=== PATIENT | male | born 1980 | race African-American/Black ===

== ENCOUNTER 2019-07-11 11:56 | Inpatient (IN) | payer MEDICAID, OTHER ==
--- NOTE | 2019-07-11 13:08 | ED ---
Psychiatric Complaint - HPI Summary HPI Summary: Patient presents with active hallucinations and suicidal ideations with plan. Told triage he planned on hanging himself last night. Reports he was living with his girlfriend but they recently broke up which has left him undomiciled. When asked if he stayed at the correction last night he reported "I can't stay in the place". When asked what he is hearing, he reports that he is and they are telling him to cut himself however he states idling to cut, I prefer burning. No active plans to burn himself however he states "if it happens". States he has not anything to eat or drink since Saturday and has not slept since Saturday. Reports daily alcohol use but denies history of withdrawal or seizures. When specifically asked if he felt he may withdraw he said no I don' t drink like that. Self-reported history of depression with schizophrenia. Reports he is not on any medication at this time and doesn't like to use medication because he doesn't feel like himself. When asked if he wanted any medication to help with the voices he's hearing, he declined. He is interested in having a meal. - History Of Current Complaint Chief Complaint: EDSuicidal Time Seen by Provider: 07/11/19 11:58 Hx Obtained From: Patient - Allergies/Home Medications Allergies/Adverse Reactions: Allergies Allergy/AdvReac Type Severity Reaction Status Date / Time Sulfa (Sulfonamide Allergy Hives/Diff. Verified 07/11/19 12:20 Antibiotics) Breathing/I tching Home Medications: Home Medications NK [No Home Medications Reported] 07/11/19 [History Confirmed 07/11/19] PMH/Surg Hx/FS Hx/Imm Hx Infectious Disease History: No Infectious Disease History: Denies: Traveled Outside the [place] in Last 30 Days - Social History Alcohol Use: Occasionally Substance Use Type: Reports: Cocaine Smoking Status (MU): Light Every Day Tobacco Smoker Review of Systems Constitutional: Negative Eyes: Negative ENT: Negative Cardiovascular: Negative Respiratory: Negative Gastrointestinal: Negative Genitourinary: Negative Musculoskeletal: Negative Skin: Negative Neurological: Negative Psychological: Other - as in history of present illness All Other Systems Reviewed And Are Negative: Yes Physical Exam Triage Information Reviewed: Yes Vital Signs On Initial Exam: Initial Vitals Temp Pulse Resp BP Pulse Ox 98.2 F 83 19 131/62 99 07/11/19 12:08 07/11/19 12:08 07/11/19 12:08 07/11/19 12:08 07/11/19 12:08 Vital Signs Reviewed: Yes Appearance: Positive: No Pain Distress - Appears fatigued, sclera injected and dry lips; poor eye contact and speaks softly although does increase volume of his voice when asked to repeat his comments; calm and cooperative - mumbles "I don't want to wake up in 6 point restraints so I'll cooperate" Skin: Positive: Warm, Skin Color Reflects Adequate Perfusion, Dry - scars on arms - no active lesions identified Head/Face: Positive: Normal Head/Face Inspection Eyes: Positive: Normal, EOMI, SMITA ENT: Positive: Hearing grossly normal Neck: Positive: Other: - no gross thyromegaly Respiratory/Lung Sounds: Positive: Clear to Auscultation, Breath Sounds Present. Negative: Rales, Rhonchi, Wheezes Cardiovascular: Positive: Normal, RRR, S1, S2. Negative: Murmur, Rub, Leg Edema Left, Leg Edema Right Abdomen Description: Positive: Nontender, No Organomegaly, Soft Bowel Sounds: Positive: Present Musculoskeletal: Positive: Normal, Strength/ROM Intact Neurological: Positive: Normal, Sensory/Motor Intact, CN Intact II-III Psychiatric: Positive: Other - as above - Maxine Coma Scale Best Eye Response: 4 - Spontaneous Best Motor Response: 6 - Obeys Commands Best Verbal Response: 5 - Oriented Coma Scale Total: 15 Diagnostics - Vital Signs Vital Signs Temp Pulse Resp BP Pulse Ox 07/11/19 12:08 98.2 F 83 19 131/62 99 - Laboratory Result Diagrams: 07/11/19 13:37 07/11/19 13:37 Lab Statement: Any lab studies that have been ordered have been reviewed, and results considered in the medical decision making process. Course/Dx - Course Course Of Treatment: Pt admits to schizophrenia and depression w/o medication or counseling at present. Does not want medication for auditory hallucinations at this time but he is aware we can discuss them if he would like to try something. He agrees to labs and a meal. Pending medical w/u and mental health eval. Labs positive for cocaine and cannabinoids - sx could be drug induced however pt admits to schizophrenia and depression and no medication at this time. If he has better mental clarity once drugs wear off and no longer has SI w / plans or auditory hallucinations, may be eligible for d/c but will need to be linked w/ MH and assistance w/ residency. Per pt, other than girlfriend who he has recently parted with, no friends or family in town and no one he wants to contact while here. - Differential Dx/Clinical Impression Provider Diagnosis: Suicidal thoughts, Auditory hallucinations Discharge ED - Sign-Out/Discharge Documenting (check all that apply): Patient Departure - Discharge Plan Condition: Stable Disposition: ADMITTED TO [facility] - Billing Disposition and Condition Condition: STABLE Disposition: Admitted to [facility]
[2019-07-11 13:47] LABS: ABS Basophils 0.1 10^3/ul (0-0.2); ABS Eosinophils 0.2 10^3/ul (0-0.6); ABS Lymphocytes 3.4 10^3/ul (1.0-4.8); ABS Neutrophils 8.4 10^3/ul (1.5-7.7); Eosinophil % 1.4 %; Hematocrit 40 % (42-52); Hemoglobin 13.7 g/dL (14.0-18.0); Lymphocyte % 25.8 %; Mean Corpuscular HGB Conc 34 g/dL (31-36); Mean Corpuscular Hemoglobin 30 pg (27-31); Mean Corpuscular Volume 89 fL (80-94); Mean Platelet Volume 7.3 fL (7.4-10.4); Nucleated Red Blood Cells % 0.1; Platelet Count 255 10^3/uL (150-450); Red Blood Count 4.52 10^6 /uL (4.18-5.48); Red Cell Distribution Width 14 % (10-15)
[2019-07-11 14:04] LABS: ALT 23 U/L (7-52); AST 31 U/L (13-39); Albumin 4.6 g/dL (3.2-5.2); Albumin/Globulin Ratio 1.7 (1-3); Alkaline Phosphatase 63 U/L (34-104); Anion Gap 6 mmol/L (2-11); BUN/Creatinine Ratio 13.1 (8-20); Blood Urea Nitrogen 18 mg/dL (6-24); CO2 Carbon Dioxide 29 mmol/L (22-32); Calcium 9.9 mg/dL (8.6-10.3); Chloride 103 mmol/L (101-111); EGFR African American 70.4 (>60); EGFR Non-African American 58.2 (>60); Globulin 2.7 g/dL (2-4); Glucose 86 mg/dL (70-100); Potassium 4.1 mmol/L (3.5-5.0); Sodium 138 mmol/L (135-145); Total Protein 7.3 g/dL (6.4-8.9)
[2019-07-11 14:25] LABS: Acetaminophen < 15 mcg/mL; Alcohol < 10 mg/dL (<10); Salicylate < 2.50 mg/dL (<30)
[2019-07-11 14:29] LABS: Urine Appearance Clear; Urine Bacteria Absent (Absent); Urine Bilirubin Negative (Negative); Urine Blood 1+ (Negative); Urine Color Yellow; Urine Glucose Negative (Negative); Urine Ketones Negative (Negative); Urine Nitrite Negative (Negative); Urine Protein 1+(30 mg/dL) (Negative); Urine Red Blood Cell 1+(3-5/hpf) (Absent); Urine Specific Gravity 1.009 (1.010-1.030); Urine Squamous Epithelial Cell Present (Absent); Urine Urobilinogen Negative (Negative); Urine White Blood Cell Trace(0-5/hpf) (Absent)
[2019-07-11 14:39] LABS: TSH (Thyroid Stimulating Horm) 0.89 mcIU/mL (0.34-5.60)
[2019-07-11 14:46] LABS: Urine Benzodiazepine Screen None Detected (None Detect); Urine Opiates Screen None Detected (None Detect)
[2019-07-11] MEDS ORDERED: Acetaminophen TAB* 325 MG PO PRN (15:23)
[2019-07-11] MEDS ORDERED: Al Hydrox/Mg Hydrox/Simet LIQ* 30 ML UDC PO PRN (15:23)
[2019-07-11] MEDS ORDERED: chlorproMAZINE TAB* 100 MG PO PRN (15:26)
[2019-07-11 18:23] VITALS: BP 114/92
[2019-07-11] MEDS: QUEtiapine TAB* 100 MG PO SCH (22:34)
[2019-07-11] MEDS: Nicotine Patch Removal NOTE FOLLOW UP SCH (23:50)
[2019-07-12] MEDS: Nicotine* 2MG (FRUIT FLAVOR) GUM PO PRN ×3 (08:28→17:57)
[2019-07-12] MEDS: Nicotine PATCH 21 MG/24 HR* PATCH TRANSDERM SCH (08:29)
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
[2019-07-12] MEDS: Naproxen TAB* 375 MG PO SCH ×2 (14:42→22:06)
[2019-07-12] MEDS: QUEtiapine TAB* 100 MG PO SCH (22:06)
[2019-07-13 08:43] LABS: HDL Cholesterol 64.2 mg/dL
[2019-07-13] MEDS: Nicotine* 2MG (FRUIT FLAVOR) GUM PO PRN ×2 (09:08→17:42)
[2019-07-13] MEDS: Naproxen TAB* 375 MG PO SCH ×3 (09:39→21:26)
[2019-07-13] MEDS: Nicotine PATCH 21 MG/24 HR* PATCH TRANSDERM SCH (09:39)
[2019-07-13] MEDS: Benzocaine/Menthol LOZ* 1 LOZENGE PO PRN ×2 (12:53→20:46)
--- NOTE | 2019-07-13 15:41 | PN ---
Subjective - Subjective Date of Service: 07/13/19 Service Type: 92824 Hosp care 15 min low complexity Subjective: Dino talks to me with a blanket over his mouth. He is very deferential and appears to not want to be a problem. We discuss his schizoaffective disorder diagnosis, which he says is most pronounced when he is stressed and/or hasn't slept. We discuss whether he would like an antipsychotic dose that is higher and he declines. He states he is interested in [facility] programming rehab. He filled out the contract and indicated which [facility] programs he would most like to go to. Objective - General Observations Appearance: Disheveled Appears Stated Age: Yes Stature: WNL Posture: WNL Eye Contact: Average Behavior/Activity: WNL, Peculiar - Interaction Observations Attitude Towards Examiner: Cooperative, Anxious Stated Mood: Dysphoric Affect: Restricted Speech Pattern/Tone: Clear Thought Process: Coherent Perception: WNL Thought Content: WNL Hallucination Type: None Delusion Type: None - Cognitive Function Orientation: A&O x 4 Level of Consciousness: Awake, Alert, Appropriate Cognition: WNL Estimated Intelligence: Normal Insight: WNL Judgment Within Normal Limits: No Ability to Make Reasonable Decisions: Mildly Impaired - Medication Compliance Cooperative with Inpatient Medication Regimen: Yes - Group Participation Participates in Group Activities: Partial Assessment - Assessment Merits Inpatient Hospitalization: For Immediate Safety Inpatient DSM-V Dx: F14.94 Clinical Impression: Dino is a 38-year-old black male who comes to the hospital following a disagreement with his former girlfriend who said he could no longer live with her. He has gone to the homeless care home and then relapsed on cocaine, cannabis , and alcohol. He presented to the hospital with auditory hallucinations, depressed mood, and suicidal ideation. He has a historical diagnosis of schizoaffective disorder. Plan - Plan Treatment Plan: Name: DINO RUTLEDGE Birthdate: 1980 [id number] Continue medications begun over the weekend with Dr. Loco. Order losenges for cough. Begin referrals to inpatient rehabs. Medications: Current Medications Acetaminophen (Tylenol Tab*) 650 mg PO Q4H PRN PRN Reason: for pain; or Temp >101 F Al Hydrox/Mg Hydrox/Simethicone (Maalox Plus*) 30 ml PO Q4H PRN PRN Reason: INDIGESTION Chlorpromazine HCl (Thorazine Tab*) 100 mg PO Q6H PRN PRN Reason: AGITATION Naproxen (Naprosyn Tab*) 375 mg PO BID [facility] Last Admin: 07/13/19 09:39 Dose: Not Given Nicotine (Nicotine Patch 21 Mg/24 Hr*) 1 patch TRANSDERM DAILY@0800 [facility] Last Admin: 07/13/19 09:39 Dose: Not Given Nicotine Polacrilex (Nicotine Gum*) 2 mg PO Q2H PRN PRN Reason: CRAVING Last Admin: 07/13/19 09:08 Dose: 2 mg Pharmacy Profile Note (Nicotine Patch Removal Note*) 1 note FOLLOW UP 2100 [facility] Last Admin: 07/11/19 23:50 Dose: Not Given Quetiapine Fumarate (Seroquel Tab*) 100 mg PO BEDTIME [facility] Last Admin: 07/12/19 22:06 Dose: Not Given Throat Lozenges (Chloraseptic Ligia*) 1 ligia PO Q6H PRN PRN Reason: SORE THROAT Last Admin: 07/13/19 12:53 Dose: 1 ligia - Discharge Plan Discharge Plan: Drug/Alcohol Rehab
[2019-07-13] MEDS: Nicotine Patch Removal NOTE FOLLOW UP SCH (20:37)
[2019-07-13] MEDS: QUEtiapine TAB* 100 MG PO SCH ×2 (21:11→21:26)
[2019-07-14] MEDS: Naproxen TAB* 375 MG PO SCH ×2 (09:50→20:39)
[2019-07-14] MEDS: Nicotine PATCH 21 MG/24 HR* PATCH TRANSDERM SCH (09:50)
[2019-07-14] MEDS: Nicotine* 2MG (FRUIT FLAVOR) GUM PO PRN ×4 (09:50→20:41)
[2019-07-14] MEDS: Benzocaine/Menthol LOZ* 1 LOZENGE PO PRN ×2 (11:24→16:32)
--- NOTE | 2019-07-14 15:36 | PN ---
Subjective - Subjective Date of Service: 07/14/19 Service Type: [id number] Hosp care 15 min low complexity Subjective: Dino is much more depressed than he was yesterday. It was possible to elicit a smile yesterday, while today he doesn't make eye contact, speaks softly and in as few words as possible. He endorses suicidal thoughts, though not with a plan here on the unit. He states his overwhelming emotion is depression with a small amount of anxiety. I ask if he is also hallucinating and he nods, but he will not offer specifics. We discuss that we can increase the Seroquel to 300 mg and he is agreeable with a shrug. Objective - General Observations Appearance: Neat Appears Stated Age: Yes Stature: WNL Posture: WNL Eye Contact: Avoidant Behavior/Activity: Slowed, Peculiar - Interaction Observations Attitude Towards Examiner: Anxious, Evasive Stated Mood: Dysphoric, Anxious Affect: Blunted Speech Pattern/Tone: Slurred, Quiet Volume Thought Process: Coherent Perception: WNL Thought Content: Depressive Thought Process: Lethality: Passive Wish, Suicidal Planning Hallucination Type: Visual Delusion Type: Denies - Cognitive Function Orientation: A&O x 4 Level of Consciousness: Awake, Alert, Appropriate Cognition: Impaired Attention/Concentration Estimated Intelligence: Normal Insight: WNL Judgment Within Normal Limits: No Ability to Make Reasonable Decisions: Mildly Impaired - Medication Compliance Cooperative with Inpatient Medication Regimen: Yes - Group Participation Participates in Group Activities: Partial Assessment - Assessment Merits Inpatient Hospitalization: For Immediate Safety Inpatient DSM-V Dx: F14.94 Clinical Impression: Dino is a 38-year-old black male who comes to the hospital following a disagreement with his former girlfriend who said he could no longer live with her. [facility] and then relapsed on cocaine, cannabis , and alcohol. He presented to the hospital with auditory hallucinations, depressed mood, and suicidal ideation. He has a historical diagnosis of schizoaffective disorder. BSU: Problem List - Patient Problems (1) Schizoaffective disorder, bipolar type Current Visit: Yes Status: Acute Code(s): F25.0 - SCHIZOAFFECTIVE DISORDER, BIPOLAR TYPE SNOMED Code(s): 70464598 Plan - Plan Treatment Plan: Name: DINO RUTLEDGE Birthdate: 1980 [id number] 07/13/19 Continue medications begun over the weekend with Dr. Loco. Order losenges for cough. Begin referrals to inpatient rehabs. 07/14/19 Increase Seroquel to 300 mg. Watch for safety and alert staff to risk of suicidal ideation. Add hydroxyzine for anxiety PRN. Medications: Current Medications Acetaminophen (Tylenol Tab*) 650 mg PO Q4H PRN PRN Reason: for pain; or Temp >101 F Al Hydrox/Mg Hydrox/Simethicone (Maalox Plus*) 30 ml PO Q4H PRN PRN Reason: INDIGESTION Chlorpromazine HCl (Thorazine Tab*) 100 mg PO Q6H PRN PRN Reason: AGITATION Hydroxyzine HCl (Atarax Tab*) 50 mg PO Q4H PRN PRN Reason: anxiety Naproxen (Naprosyn Tab*) 375 mg PO BID [facility] Last Admin: 07/14/19 09:50 Dose: Not Given Nicotine (Nicotine Patch 21 Mg/24 Hr*) 1 patch TRANSDERM DAILY@0800 [facility] Last Admin: 07/14/19 09:50 Dose: Not Given Nicotine Polacrilex (Nicotine Gum*) 2 mg PO Q2H PRN PRN Reason: CRAVING Last Admin: 07/14/19 12:34 Dose: 2 mg Pharmacy Profile Note (Nicotine Patch Removal Note*) 1 note FOLLOW UP 2100 [facility] Last Admin: 07/13/19 20:37 Dose: Not Given Quetiapine Fumarate (Seroquel Tab*) 300 mg PO BEDTIME [facility] Throat Lozenges (Chloraseptic German*) 1 german PO Q6H PRN PRN Reason: SORE THROAT Last Admin: 07/14/19 11:24 Dose: 1 german - Discharge Plan Discharge Plan: Drug/Alcohol Rehab
[2019-07-14] MEDS ORDERED: QUEtiapine TAB* 300 MG PO SCH (21:00)
[2019-07-15] MEDS: Nicotine Patch Removal NOTE FOLLOW UP SCH ×2 (00:22→21:27)
[2019-07-15] MEDS: Nicotine PATCH 21 MG/24 HR* PATCH TRANSDERM SCH (11:25)
[2019-07-15] MEDS: Naproxen TAB* 375 MG PO SCH ×2 (11:25→19:55)
[2019-07-15] MEDS: hydrOXYzine HCL TAB* 50 MG PO PRN (11:59)
[2019-07-15] MEDS: Nicotine* 2MG (FRUIT FLAVOR) GUM PO PRN ×3 (12:01→19:55)
[2019-07-15] MEDS ORDERED: Zolpidem TAB* 10 MG PO PRN (15:04)
--- NOTE | 2019-07-15 15:11 | PN ---
Subjective - Subjective Date of Service: 07/15/19 Service Type: [id number] Hosp care 15 min low complexity Subjective: Dino is still interested in going to rehab. He also states that he is still having suicidal thoughts (04/18) and hallucinating "here and there." He does have a tendency to minimize his symptoms. Today he was more talkative and indicated that he is a little bored. He doesn't want to go to groups because he is the only male attending. He agreed to the challenge to stay for at least one. He states Seroquel doesn't make him sleepy. He wanted to move it to daytime and to add Ambien to sleep at night. I did advise him that this would not be ordered for discharge, but he was still agreeable, as he states he hasn't slept well in days. He states he likes Atarax, as he was starting to panic when his ex-girlfriend was bringing him books and belongings, and taking it arrested the panic response. Objective - General Observations Appearance: Neat Appears Stated Age: Yes Stature: WNL Posture: WNL Eye Contact: Average Behavior/Activity: WNL - Interaction Observations Attitude Towards Examiner: Cooperative, Anxious Stated Mood: Dysphoric, Anxious Affect: Blunted Speech Pattern/Tone: Clear Thought Process: Coherent, Goal Directed Perception: WNL Thought Content: Preoccupation/Ruminations Thought Process: Lethality: Passive Wish, Suicidal Planning Hallucination Type: Auditory, Visual Delusion Type: None - Cognitive Function Orientation: A&O x 4 Level of Consciousness: Awake, Alert, Appropriate Cognition: WNL Estimated Intelligence: Normal Insight: WNL Judgment Within Normal Limits: No Ability to Make Reasonable Decisions: Mildly Impaired - Medication Compliance Cooperative with Inpatient Medication Regimen: Yes - Group Participation Participates in Group Activities: Partial Assessment - Assessment Merits Inpatient Hospitalization: For Immediate Safety Inpatient DSM-V Dx: F14.94 Clinical Impression: Dino is a 38-year-old black male who comes to the hospital following a disagreement with his former girlfriend who said he could no longer live with her. He has gone to the homeless nursing home and then relapsed on cocaine, cannabis , and alcohol. He presented to the hospital with auditory hallucinations, depressed mood, and suicidal ideation. He has a historical diagnosis of schizoaffective disorder. BSU: Problem List - Patient Problems (1) Schizoaffective disorder, bipolar type Current Visit: Yes Status: Acute Code(s): F25.0 - SCHIZOAFFECTIVE DISORDER, BIPOLAR TYPE SNOMED Code(s): 26824431 Plan - Plan Treatment Plan: Name: DINO RUTLEDGE Birthdate: 1980 [id number] 07/13/19 Continue medications begun over the weekend with Dr. Loco. Order losenges for cough. Begin referrals to inpatient rehabs. 07/14/19 Increase Seroquel to 300 mg. Watch for safety and alert staff to risk of suicidal ideation. Add hydroxyzine for anxiety PRN. 07/15/19 Increase Seroquel to 400 mg and move to morning. Start Ambien 10 mg at bedtime. Continue other medications. Continue monitoring rehabs for acceptances and rejections. Continued Medication Management: Different Medication Medications: Current Medications Acetaminophen (Tylenol Tab*) 650 mg PO Q4H PRN PRN Reason: for pain; or Temp >101 F Al Hydrox/Mg Hydrox/Simethicone (Maalox Plus*) 30 ml PO Q4H PRN PRN Reason: INDIGESTION Hydroxyzine HCl (Atarax Tab*) 50 mg PO Q4H PRN PRN Reason: anxiety Last Admin: 07/15/19 11:59 Dose: 50 mg Naproxen (Naprosyn Tab*) 375 mg PO BID [facility] Last Admin: 07/15/19 11:25 Dose: Not Given Nicotine (Nicotine Patch 21 Mg/24 Hr*) 1 patch TRANSDERM DAILY@0800 [facility] Last Admin: 07/15/19 11:25 Dose: Not Given Nicotine Polacrilex (Nicotine Gum*) 2 mg PO Q2H PRN PRN Reason: CRAVING Last Admin: 07/15/19 12:01 Dose: 2 mg Pharmacy Profile Note (Nicotine Patch Removal Note*) 1 note FOLLOW UP 2100 [facility] Last Admin: 07/15/19 00:22 Dose: Not Given Quetiapine Fumarate (Seroquel Tab*) 400 mg PO DAILY [facility] Throat Lozenges (Chloraseptic German*) 1 german PO Q6H PRN PRN Reason: SORE THROAT Last Admin: 07/14/19 16:32 Dose: 1 german Zolpidem Tartrate (Ambien Tab*) 10 mg PO BEDTIME PRN PRN Reason: INSOMNIA - Discharge Plan Discharge Plan: Drug/Alcohol Rehab
[2019-07-15] MEDS: Benzocaine/Menthol LOZ* 1 LOZENGE PO PRN (15:54)
[2019-07-16] MEDS: Nicotine PATCH 21 MG/24 HR* PATCH TRANSDERM SCH (08:46)
[2019-07-16] MEDS: Naproxen TAB* 375 MG PO SCH ×2 (08:46→20:30)
[2019-07-16] MEDS ORDERED: QUEtiapine TAB* 100 MG PO SCH (09:00)
[2019-07-16] MEDS ORDERED: QUEtiapine TAB* 300 MG PO SCH ×2 (09:00→21:00)
[2019-07-16] MEDS: Nicotine* 2MG (FRUIT FLAVOR) GUM PO PRN ×3 (09:09→17:32)
--- NOTE | 2019-07-16 13:50 | PN ---
Subjective - Subjective Date of Service: 07/16/19 Service Type: 85830 Hosp care 15 min low complexity Subjective: Dino seems flat and emotionless, although perhaps overwhelmingly dysphoric. He requested the ability to use the Relaxation Room, which was granted by discussion with other staff. He did not sleep with Ambien. He took Seroquel 400 mg today in the morning and didn't find it to be very sedating, although he does seem apathetic. We discussed using an antidepressant in addition to Seroquel, but he said, "Don' t worry about it." I offered several times and he is not interested. Objective - General Observations Appearance: Neat Appears Stated Age: Yes Stature: WNL Posture: WNL Eye Contact: Intermittent Behavior/Activity: Slowed - Interaction Observations Attitude Towards Examiner: Cooperative, Other (See Comment) - Apathetic Stated Mood: Dysphoric Affect: Flat Speech Pattern/Tone: Unclear, Quiet Volume Thought Process: Coherent Perception: WNL Thought Content: Depressive Thought Process: Lethality: Passive Wish, Suicidal Planning Hallucination Type: Auditory Delusion Type: Denies - Cognitive Function Orientation: A&O x 4 Level of Consciousness: Awake, Alert, Lethargic Cognition: WNL Estimated Intelligence: Normal Insight: WNL Judgment Within Normal Limits: No Ability to Make Reasonable Decisions: Mildly Impaired - Medication Compliance Cooperative with Inpatient Medication Regimen: Yes - Group Participation Participates in Group Activities: Partial - attends, but does not engage Assessment - Assessment Merits Inpatient Hospitalization: For Immediate Safety, For Discharge Planning Inpatient DSM-V Dx: F14.94 Clinical Impression: Dino is a 38-year-old black male who comes to the hospital following a disagreement with his former girlfriend who said he could no longer live with her. He has gone to the homeless intermediate and then relapsed on cocaine, cannabis , and alcohol. He presented to the hospital with auditory hallucinations, depressed mood, and suicidal ideation. He has a historical diagnosis of schizoaffective disorder and is currently hallucinating. BSU: Problem List - Patient Problems (1) Schizoaffective disorder, bipolar type Current Visit: Yes Status: Acute Code(s): F25.0 - SCHIZOAFFECTIVE DISORDER, BIPOLAR TYPE SNOMED Code(s): 75871110 Plan - Plan Treatment Plan: Name: DINO RUTLEDGE Birthdate: 1980 [id number] 07/13/19 Continue medications begun over the weekend with Dr. Loco. Order losenges for cough. Begin referrals to inpatient rehabs. 07/14/19 Increase Seroquel to 300 mg. Watch for safety and alert staff to risk of suicidal ideation. Add hydroxyzine for anxiety PRN. 07/15/19 Increase Seroquel to 400 mg and move to morning. Start Ambien 10 mg at bedtime. Continue other medications. Continue monitoring rehabs for acceptances and rejections. 07/16/19 Increase Seroquel to 600 mg and move to bedtime. Discontinue Ambien. Continue to pursue rehab facility placement. Continued Medication Management: Different Medication Medications: Current Medications Acetaminophen (Tylenol Tab*) 650 mg PO Q4H PRN PRN Reason: for pain; or Temp >101 F Al Hydrox/Mg Hydrox/Simethicone (Maalox Plus*) 30 ml PO Q4H PRN PRN Reason: INDIGESTION Hydroxyzine HCl (Atarax Tab*) 50 mg PO Q4H PRN PRN Reason: anxiety Last Admin: 07/15/19 11:59 Dose: 50 mg Naproxen (Naprosyn Tab*) 375 mg PO BID [facility] Last Admin: 07/16/19 08:46 Dose: Not Given Nicotine (Nicotine Patch 21 Mg/24 Hr*) 1 patch TRANSDERM DAILY@0800 [facility] Last Admin: 07/16/19 08:46 Dose: Not Given Nicotine Polacrilex (Nicotine Gum*) 2 mg PO Q2H PRN PRN Reason: CRAVING Last Admin: 07/16/19 12:43 Dose: 2 mg Pharmacy Profile Note (Nicotine Patch Removal Note*) 1 note FOLLOW UP 2100 [facility] Last Admin: 07/15/19 21:27 Dose: Not Given Quetiapine Fumarate (Seroquel Tab*) 600 mg PO BEDTIME [facility] Throat Lozenges (Chloraseptic German*) 1 german PO Q6H PRN PRN Reason: SORE THROAT Last Admin: 07/15/19 15:54 Dose: 1 german - Discharge Plan Discharge Plan: Drug/Alcohol Rehab
[2019-07-16] MEDS: hydrOXYzine HCL TAB* 50 MG PO PRN (20:33)
[2019-07-16] MEDS: Nicotine Patch Removal NOTE FOLLOW UP SCH (22:25)
[2019-07-17] MEDS: Naproxen TAB* 375 MG PO SCH ×3 (11:23→19:50)
[2019-07-17] MEDS: Nicotine PATCH 21 MG/24 HR* PATCH TRANSDERM SCH (11:23)
[2019-07-17] MEDS: hydrOXYzine HCL TAB* 50 MG PO PRN (12:33)
[2019-07-17] MEDS: Nicotine* 2MG (FRUIT FLAVOR) GUM PO PRN ×2 (12:33→17:51)
--- NOTE | 2019-07-17 14:52 | PN ---
Subjective - Subjective Date of Service: 07/17/19 Service Type: [id number] Hosp care 25 min moderate complexity Subjective: Dino is most concerned about not sleeping and getting into rehab. He is frustrated as several attempts have been made to help him sleep. Seroquel was increased to 600 mg, but he did not stay asleep. I asked what has helped in the past and he ruefully stated that beer helped. This tells me that a benzodiazepine might be helpful, but as that is a controlled substance, that is not a good possibility. About rehab, the [place] facilities have so far indicated that Dino is too mentally ill to be admitted. Dino does, in fact, have a diagnosis of schizoaffective disorder, but with treatment here in the hospital has become safe, non-suicidal, and able to appropriately advocate for his own health care. Objective - General Observations Appearance: Neat Appears Stated Age: Yes Stature: WNL Posture: WNL Eye Contact: Intermittent Behavior/Activity: WNL - Interaction Observations Attitude Towards Examiner: Cooperative, Anxious Stated Mood: Dysphoric, Anxious Affect: Blunted Speech Pattern/Tone: Clear Thought Process: Coherent Perception: WNL Thought Content: Preoccupation/Ruminations Hallucination Type: Auditory Delusion Type: Denies - Cognitive Function Orientation: A&O x 4 Level of Consciousness: Awake, Alert, Appropriate Cognition: WNL, Impaired Attention/Concentration Estimated Intelligence: Normal Insight: WNL Judgment Within Normal Limits: No Ability to Make Reasonable Decisions: Moderately Impaired - Medication Compliance Cooperative with Inpatient Medication Regimen: Yes - Group Participation Participates in Group Activities: Partial Assessment - Assessment Merits Inpatient Hospitalization: For Immediate Safety, For Discharge Planning Inpatient DSM-V Dx: F14.94 Clinical Impression: Dino is a 38-year-old black male who comes to the hospital following a disagreement with his former girlfriend who said he could no longer live with her. He has gone to the homeless nursing home and then relapsed on cocaine, cannabis , and alcohol. He presented to the hospital with auditory hallucinations, depressed mood, and suicidal ideation. He has a historical diagnosis of schizoaffective disorder and is currently hallucinating. BSU: Problem List - Patient Problems (1) Schizoaffective disorder, bipolar type Current Visit: Yes Status: Acute Code(s): F25.0 - SCHIZOAFFECTIVE DISORDER, BIPOLAR TYPE SNOMED Code(s): 48204078 Plan - Plan Treatment Plan: Name: DINO RUTLEDGE Birthdate: 1980 [id number] 07/13/19 Continue medications begun over the weekend with Dr. Loco. Order losenges for cough. Begin referrals to inpatient rehabs. 07/14/19 Increase Seroquel to 300 mg. Watch for safety and alert staff to risk of suicidal ideation. Add hydroxyzine for anxiety PRN. 07/15/19 Increase Seroquel to 400 mg and move to morning. Start Ambien 10 mg at bedtime. Continue other medications. Continue monitoring rehabs for acceptances and rejections. 07/16/19 Increase Seroquel to 600 mg and move to bedtime. Discontinue Ambien. Continue to pursue rehab facility placement. 07/17/19 Shift to Seroquel XR to attempt to get a full night's sleep. Add gabapentin to aid sleep. Continue to monitor for suicidal ideation. Continued Medication Management: Different Medication Medications: Current Medications Acetaminophen (Tylenol Tab*) 650 mg PO Q4H PRN PRN Reason: for pain; or Temp >101 F Al Hydrox/Mg Hydrox/Simethicone (Maalox Plus*) 30 ml PO Q4H PRN PRN Reason: INDIGESTION Gabapentin (Neurontin Cap(*)) 300 mg PO BEDTIME [facility] Hydroxyzine HCl (Atarax Tab*) 50 mg PO Q4H PRN PRN Reason: anxiety Last Admin: 07/17/19 12:33 Dose: 50 mg Naproxen (Naprosyn Tab*) 375 mg PO BID [facility] Last Admin: 07/17/19 12:32 Dose: 375 mg Nicotine (Nicotine Patch 21 Mg/24 Hr*) 1 patch TRANSDERM DAILY@0800 [facility] Last Admin: 07/17/19 11:23 Dose: Not Given Nicotine Polacrilex (Nicotine Gum*) 2 mg PO Q2H PRN PRN Reason: CRAVING Last Admin: 07/17/19 12:33 Dose: 2 mg Pharmacy Profile Note (Nicotine Patch Removal Note*) 1 note FOLLOW UP 2100 [facility] Last Admin: 07/16/19 22:25 Dose: 1 note Quetiapine Fumarate (Seroquel Xr Tab*) 600 mg PO BEDTIME [facility] Throat Lozenges (Chloraseptic German*) 1 german PO Q6H PRN PRN Reason: SORE THROAT Last Admin: 07/15/19 15:54 Dose: 1 german - Discharge Plan Discharge Plan: Drug/Alcohol Rehab
[2019-07-17] MEDS: Gabapentin CAP(*) 300 MG PO SCH (19:49)
[2019-07-17] MEDS: QUEtiapine XR TAB* 300 MG PO SCH (19:50)
[2019-07-17] MEDS: Nicotine Patch Removal NOTE FOLLOW UP SCH (20:35)
[2019-07-18] MEDS: Naproxen TAB* 375 MG PO SCH ×2 (08:43→21:09)
[2019-07-18] MEDS: Nicotine PATCH 21 MG/24 HR* PATCH TRANSDERM SCH (08:44)
[2019-07-18] MEDS: Nicotine* 2MG (FRUIT FLAVOR) GUM PO PRN ×4 (08:44→18:08)
[2019-07-18 09:58] LABS: Hepatitis B Surface Antigen Nonreactive (Nonreactive)
[2019-07-18 10:08] LABS: HIV 4th Generation Nonreactive (Nonreactive)
[2019-07-18 10:16] LABS: Hepatitis C Antibody Negative (Negative)
[2019-07-18] MEDS: Benzocaine/Menthol LOZ* 1 LOZENGE PO PRN ×2 (12:34→20:50)
[2019-07-18] MEDS: hydrOXYzine HCL TAB* 50 MG PO PRN ×2 (14:50→22:20)
[2019-07-18] MEDS: QUEtiapine XR TAB* 300 MG PO SCH (20:47)
[2019-07-18] MEDS: Gabapentin CAP(*) 300 MG PO SCH (20:47)
[2019-07-18] MEDS: Nicotine Patch Removal NOTE FOLLOW UP SCH (21:10)
[2019-07-19] MEDS: Naproxen TAB* 375 MG PO SCH ×2 (09:49→20:53)
[2019-07-19] MEDS: Nicotine* 2MG (FRUIT FLAVOR) GUM PO PRN ×3 (09:49→18:04)
[2019-07-19] MEDS: Nicotine PATCH 21 MG/24 HR* PATCH TRANSDERM SCH (09:50)
[2019-07-19] MEDS: hydrOXYzine HCL TAB* 50 MG PO PRN ×2 (11:53→20:37)
[2019-07-19] MEDS: Benzocaine/Menthol LOZ* 1 LOZENGE PO PRN (14:02)
[2019-07-19] MEDS: QUEtiapine XR TAB* 300 MG PO SCH (20:34)
[2019-07-19] MEDS: Gabapentin CAP(*) 300 MG PO SCH (20:34)
[2019-07-19] MEDS: Nicotine Patch Removal NOTE FOLLOW UP SCH (21:40)
[2019-07-20] MEDS: Nicotine PATCH 21 MG/24 HR* PATCH TRANSDERM SCH ×2 (11:28→11:32)
[2019-07-20] MEDS: Naproxen TAB* 375 MG PO SCH ×2 (11:28→22:10)
[2019-07-20] MEDS: Nicotine* 2MG (FRUIT FLAVOR) GUM PO PRN ×3 (11:33→20:57)
[2019-07-20] MEDS: Benzocaine/Menthol LOZ* 1 LOZENGE PO PRN ×2 (13:43→20:04)
--- NOTE | 2019-07-20 15:22 | PN ---
Subjective - Subjective Date of Service: 07/20/19 Service Type: [id number] Hosp care 25 min moderate complexity Subjective: From the notes read over the weekend, it appeared that Dino wanted to be discharged today. In fact, he has no desire to be discharged and is still wanting to be sent to inpatient rehab. He says, "Where would I go? Back into the world to start drinking again?" He says his anxiety is "really bad." He states he's fidgeting constantly and his heart is racing. He's having trouble with sleep due to anxiety. He states he also wants a dental referral as he believes he has a crack in his molars. Objective - General Observations Appearance: Unkempt Appears Stated Age: Yes Stature: WNL Posture: Slumped Eye Contact: Intermittent Behavior/Activity: WNL - Interaction Observations Attitude Towards Examiner: Cooperative Stated Mood: Dysphoric, Anxious Affect: Blunted Speech Pattern/Tone: Clear Thought Process: Coherent Perception: WNL Thought Content: WNL Hallucination Type: None Delusion Type: None - Cognitive Function Orientation: A&O x 4 Level of Consciousness: Awake, Alert, Appropriate Cognition: WNL Estimated Intelligence: Normal Insight: WNL Judgment Within Normal Limits: Yes - Medication Compliance Cooperative with Inpatient Medication Regimen: Yes - Group Participation Participates in Group Activities: Yes Assessment - Assessment Merits Inpatient Hospitalization: For Immediate Safety Inpatient DSM-V Dx: F14.94 Clinical Impression: Dino is a 38-year-old black male who comes to the hospital following a disagreement with his former girlfriend who said he could no longer live with her. [facility] and then relapsed on cocaine, cannabis , and alcohol. He presented to the hospital with auditory hallucinations, depressed mood, and suicidal ideation. He has a historical diagnosis of schizoaffective disorder. He is not longer experiencing suicidal ideation or hallucinations. BSU: Problem List - Patient Problems (1) Schizoaffective disorder, bipolar type Current Visit: Yes Status: Acute Code(s): F25.0 - SCHIZOAFFECTIVE DISORDER, BIPOLAR TYPE SNOMED Code(s): 33141806 Plan - Plan Treatment Plan: Name: DINO RUTLEDGE Birthdate: 1980 [id number] 07/13/19 Continue medications begun over the weekend with Dr. Loco. Order losenges for cough. Begin referrals to inpatient rehabs. 07/14/19 Increase Seroquel to 300 mg. Watch for safety and alert staff to risk of suicidal ideation. Add hydroxyzine for anxiety PRN. 07/15/19 Increase Seroquel to 400 mg and move to morning. Start Ambien 10 mg at bedtime. Continue other medications. Continue monitoring rehabs for acceptances and rejections. 07/16/19 Increase Seroquel to 600 mg and move to bedtime. Discontinue Ambien. Continue to pursue rehab facility placement. 07/17/19 Shift to Seroquel XR to attempt to get a full night's sleep. Add gabapentin to aid sleep. Continue to monitor for suicidal ideation. 07/20/19 Continue treatment. Prepare for discharge or rehab admission. Medications: Current Medications Acetaminophen (Tylenol Tab*) 650 mg PO Q4H PRN PRN Reason: for pain; or Temp >101 F Al Hydrox/Mg Hydrox/Simethicone (Maalox Plus*) 30 ml PO Q4H PRN PRN Reason: INDIGESTION Gabapentin (Neurontin Cap(*)) 300 mg PO BEDTIME [facility] Last Admin: 07/19/19 20:34 Dose: 300 mg Hydroxyzine HCl (Atarax Tab*) 50 mg PO Q4H PRN PRN Reason: anxiety Last Admin: 07/19/19 20:37 Dose: 50 mg Naproxen (Naprosyn Tab*) 375 mg PO BID [facility] Last Admin: 07/20/19 11:28 Dose: Not Given Nicotine (Nicotine Patch 21 Mg/24 Hr*) 1 patch TRANSDERM DAILY@0800 [facility] Last Admin: 07/20/19 11:32 Dose: 1 patch Nicotine Polacrilex (Nicotine Gum*) 2 mg PO Q2H PRN PRN Reason: CRAVING Last Admin: 07/20/19 11:33 Dose: 2 mg Pharmacy Profile Note (Nicotine Patch Removal Note*) 1 note FOLLOW UP 2100 [facility] Last Admin: 07/19/19 21:40 Dose: Not Given Quetiapine Fumarate (Seroquel Xr Tab*) 600 mg PO BEDTIME [facility] Last Admin: 07/19/19 20:34 Dose: 600 mg Throat Lozenges (Chloraseptic German*) 1 german PO Q6H PRN PRN Reason: SORE THROAT Last Admin: 07/20/19 13:43 Dose: 1 german - Discharge Plan Discharge Plan: Drug/Alcohol Rehab
[2019-07-20] MEDS ORDERED: cloNIDine TAB* 0.1 MG PO SCH (21:00)
[2019-07-20] MEDS: hydrOXYzine HCL TAB* 50 MG PO PRN (22:10)
[2019-07-20] MEDS: Gabapentin CAP(*) 300 MG PO SCH (22:10)
[2019-07-20] MEDS: QUEtiapine XR TAB* 300 MG PO SCH (22:11)
[2019-07-21] MEDS: Nicotine* 2MG (FRUIT FLAVOR) GUM PO PRN ×2 (00:10→10:00)
[2019-07-21] MEDS: Nicotine Patch Removal NOTE FOLLOW UP SCH (00:54)
[2019-07-21] MEDS: Nicotine PATCH 21 MG/24 HR* PATCH TRANSDERM SCH (10:00)
[2019-07-21] MEDS: Naproxen TAB* 375 MG PO SCH (10:01)
[2019-07-21] MEDS: hydrOXYzine HCL TAB* 50 MG PO PRN (10:22)
[2019-07-21 11:20] LABS: Herpes Simplex Virus I IgG AB Positive (Negative); Herpes Simplex Virus II IgG AB Positive (Negative)
--- NOTE | 2019-07-21 19:22 | DS ---
DISCHARGE SUMMARY: DATE OF ADMISSION: 07/11/19 DATE OF DISCHARGE: 07/21/19 PROVIDER: Luli Velazquez NP in Psychiatry. SUPERVISING PHYSICIAN: Dr. Gagan Loco.* (DICTATED BY LULI VELAZQUEZ NP ) DIAGNOSES: 1. Seizure disorder, bipolar type. 2. Cocaine-induced depressive disorder. CONDITION AT THE TIME OF DISCHARGE: Improved, psychiatrically cleared, stable. Louie participated in some groups and was social with peers. He is agreeable reluctantly to discharge. He had intended to go to an inpatient rehab, but was not accepted. He has done well here psychiatrically. He tolerated the addition of medications well. He is referred to [facility] as well as [facility]. MENTAL STATUS EXAM: At the time of discharge, Louie is calm, cooperative, and makes good eye contact. He is alert and oriented x4. His grooming is good. His speech pace is normal. His thought processes are logical. He is not psychotic or delusional. He denies AH, VH, SI, and HI. Insight and judgment are good. He is willing to follow up and he is urged to see a therapist. DISCHARGE INSTRUCTIONS TO THE PATIENT: A. Medications: 1. Clonidine 0.1 mg at bedtime. 2. Gabapentin 300 mg at bedtime. 3. Hydroxyzine 50 mg q.4 hours p.r.n. anxiety. 4. Naproxen 375 mg b.i.d. 5. Quetiapine XR 600 mg at bedtime. B. Diet is regular. C. Activities as tolerated. He has declined a referral to the [facility] Smokers' Quitline at this time. If he decides to access this free service in the future, he can contact the quitline toll free at [phone]. There are no studies pending at the time of discharge. D. Followup care: With [facility], it is recommended that he make an appointment within 30 days. He has an appointment at [facility], where he is offered to have a walk-in appointment. It states that if you get there at 8:30, you can complete your paperwork and a clinician can see you at 9 a.m. Please bring your insurance card and photo ID. E. Disposition: Louie is being discharged to [facility] where he will be sent to housing. F. Substance abuse indicated. He is referred to [facility] for substance abuse treatment. HOSPITAL COURSE: Part A: Chief complaint: "If I go back out there, it is just going to get worse." Mr. Graff is a 38-year-old single -[place] male with a history of cocaine dependence and putative schizoaffective disorder bipolar type, who arrived as a self referral from the [facility] complaining of auditory hallucinations, depressed mood, and suicidal ideations with a recent plan and aborted attempt to purchase a rope and hang himself from a tree. The patient states that he had been living in the [facility] for a long time, but moved to [place] to be with a girlfriend in March. Approximately a week ago, she broke up with him and he has been forced to stay in the local homeless alf. He states that he recently relapsed after the breakup and started using cocaine and cannabis. He also endorses daily consumption of 2 to 3 beers. The patient could not contract for safety in our emergency room and was requesting admission. He is also complaining of swelling and pain in his left ankle. He does appear to have several signs and symptoms of acute cocaine withdrawal including hypersomnia, hyperphagia, red injected sclerae, and irritability. The patient is telling me that he would like to go to a [facility] dual diagnosis inpatient rehab program. Part B: Psychiatric treatment was rendered. Louie was admitted to the adult behavioral unit and placed on 15-minute checks for safety. He did advance to 30 - minute checks and staff pass privileges. Louie did well on the unit and went to many groups. He interacted with peers well. Medications were started including Seroquel (titrated from 200 to 600 mg), which was then changed to Seroquel XR 600 mg in order to obtain a full night sleep as he was complaining of having interrupted sleep and waking too early. We did try Ambien 10 mg, but this was not a successful choice and would likely have been a failure as it would not be able to be continued in the outpatient setting. We also added gabapentin to aid his sleep in addition to clonidine 0.1 as he was complaining of feeling agitated, having a racing heart, and feeling restless throughout the day due to anxiety. Louie is on an antipsychotic, namely Seroquel XR. His hemoglobin A1c is 5.0%. His triglycerides are 114, cholesterol 157, LDL cholesterol 70, HDL cholesterol 64.2. It should be noted that his TSH is 0.89. There were no consults entered for Louie. He is improved. Upon admission, he was reserved and difficult to talk with, being very agreeable, but not very informative. By the time he was leaving, he was more personable, he was more social on the unit and was pleasant to talk to. He denied SI and felt less depressed although still anxious. He is future oriented. He was disappointed that he did not go to an inpatient treatment directly from the hospital, but he is future oriented and prepared to go back to work for which he requested a letter that I supplied. LULI VELAZQUEZ, CONSUELO [id number]/CPS #: [id number] [place]
== END 2019-07-21 11:00 | disposition home or self-care (01) | DRG 774 ==
LOC: ED 11:56 → BSU 15:23
PROVIDERS: ADMIT Psychiatry & Neurology Psychiatry; ATTEND Psychiatry & Neurology Psychiatry
DX: F14.94 Cocaine use, unspecified with cocaine-induced mood disorder (principal); R45.851 Suicidal ideations; F25.0 Schizoaffective disorder, bipolar type; G40.909 Epilepsy, unspecified, not intractable, without status epilepticus; M25.572 Pain in left ankle and joints of left foot; F12.90 Cannabis use, unspecified, uncomplicated; F17.210 Nicotine dependence, cigarettes, uncomplicated; Z79.899 Other long term (current) drug therapy; Z88.2 Allergy status to sulfonamides; Z72.89 Other problems related to lifestyle; Z59.0 Homelessness
CPT/HCPCS: 36415; 80053; 80061; 80074; 80307; 80320; 80329; 81003; 81015; 83036; 84443; 85025; 85660; 86695; 86696; 86780; 87086; 87389; 99222; 99231; 99232; 99238; 99285; A9270-GY; G0480

== ENCOUNTER 2019-10-28 04:11 | Inpatient (IN) | payer OTHER ==
[2019-10-28 04:30] LABS: ABS Basophils 0.1 10^3/ul (0-0.2); ABS Eosinophils 0.1 10^3/ul (0-0.6); ABS Lymphocytes 2.7 10^3/ul (1.0-4.8); ABS Monocytes 0.7 10^3/ul (0-0.8); ABS Neutrophils 10.3 10^3/ul (1.5-7.7); Eosinophil % 0.6 %; Hematocrit 41 % (42-52); Hemoglobin 13.8 g/dL (14.0-18.0); Lymphocyte % 19.5 %; Mean Corpuscular HGB Conc 34 g/dL (31-36); Mean Corpuscular Hemoglobin 30 pg (27-31); Mean Corpuscular Volume 88 fL (80-94); Mean Platelet Volume 7.4 fL (7.4-10.4); Nucleated Red Blood Cells % 0.1; Platelet Count 234 10^3/uL (150-450); Red Blood Count 4.62 10^6 /uL (4.18-5.48); Red Cell Distribution Width 15 % (10-15); White Blood Count 13.9 10^3/uL (3.5-10.8)
[2019-10-28 04:45] LABS: ALT 17 U/L (7-52); AST 33 U/L (13-39); Albumin 4.8 g/dL (3.2-5.2); Albumin/Globulin Ratio 1.5 (1-3); Alkaline Phosphatase 61 U/L (34-104); Anion Gap 8 mmol/L (2-11); BUN/Creatinine Ratio 9.5 (8-20); Blood Urea Nitrogen 12 mg/dL (6-24); CO2 Carbon Dioxide 30 mmol/L (22-32); Chloride 101 mmol/L (101-111); EGFR African American 77.1 (>60); EGFR Non-African American 63.7 (>60); Globulin 3.1 g/dL (2-4); Glucose 94 mg/dL (70-100); Potassium 3.3 mmol/L (3.5-5.0); Sodium 139 mmol/L (135-145); Total Protein 7.9 g/dL (6.4-8.9)
[2019-10-28 04:47] LABS: Calcium < 4.0 mg/dL (8.6-10.3)
[2019-10-28 04:52] LABS: HCG Pregnancy 0.72 mIU/mL
[2019-10-28 04:58] LABS: Acetaminophen < 15 mcg/mL; Alcohol < 10 mg/dL (<10); Salicylate < 2.50 mg/dL (<30)
--- NOTE | 2019-10-28 05:06 | ED ---
Psychiatric Complaint - HPI Summary HPI Summary: The patient is a 39-year-old male brought in by police to [facility] as 941 with chief complaint of suicidality with a plan worsening for the last few months. He reports that he is experiencing thoughts of self-harm, although he was not inflicted anything upon himself at this time. He has thought of a plan to cut or hang himself. He has no prior suicidal attempts. He is supposed to be taking Seroquel, Abilify, and other psychiatric medications but has not been compliant with them as he states he has been busy at work. He does not currently see a counselor. He lives with his family. No physical pain or other complaints at this time. Past medical history significant for schizoaffective disorder, bipolar disorder. Current smoker, occasional EtOH, marijuana and cocaine ( tonight) use. Medications reviewed. Allergies noted. - History Of Current Complaint Chief Complaint: EDSuicidal Time Seen by Provider: 10/28/19 04:14 Hx Obtained From: Patient Onset/Duration: Gradual Onset, Lasting Weeks, Still Present Timing: Constant Severity Initially: Mild Severity Currently: Moderate Character: Depressed Aggravating Factor(s): Medication Non-compliance Alleviating Factor(s): Nothing Associated Signs And Symptoms: Positive: Negative Related History: Positive For: Prior Psychiatric Issues - schizoaffective disorder, bipolar disorder Has Suicidal: Reports: Thoughts, With A Plan - cutting or hanging self - Allergies/Home Medications Allergies/Adverse Reactions: Allergies Allergy/AdvReac Type Severity Reaction Status Date / Time Sulfa (Sulfonamide Allergy Hives/Diff. Verified 07/11/19 12:20 Antibiotics) Breathing/I tching Home Medications: Home Medications NK [No Home Medications Reported] 10/28/19 [History Confirmed 10/28/19] PMH/Surg Hx/FS Hx/Imm Hx Endocrine/Hematology History: Denies: Hx Diabetes Cardiovascular History: Denies: Hx Hypertension Sensory History: Denies: Hx Contacts or Glasses, Hx Hearing Aid Opthamlomology History: Denies: Hx Contacts or Glasses Psychiatric History: Reports: Hx Schizophrenia, Hx Bipolar Disorder, Other Psychiatric Issues/Disorders - Schizoeffective d/o Denies: Hx Eating Disorder, Hx of Violent Episodes Against Others - Surgical History Surgical History: None Surgery Procedure, Year, and Place: none Infectious Disease History: No Infectious Disease History: Denies: Traveled Outside the [place] in Last 30 Days - Family History Known Family History: Positive: Cardiac Disease, Diabetes, Other - cancer - Social History Alcohol Use: Occasionally Hx Substance Use: No Substance Use Type: Reports: Cocaine, Marijuana Hx Tobacco Use: Yes Smoking Status (MU): Light Every Day Tobacco Smoker - Additional Comments History Additional Comments: schizoaffective disorder, bipolar disorder Review of Systems - ROS Summary Review of Systems Summary: Home Medications Medication Instructions Recorded Confirmed Type Gabapentin CAP(*) [Neurontin 300 300 mg PO BEDTIME #30 cap 07/21/19 Rx CAP(*)] Naproxen TAB* [Naprosyn 375 mg 375 mg PO BID #60 tab 07/21/19 Rx TAB*] QUEtiapine XR TAB* [Seroquel Xr 600 mg PO BEDTIME #60 tab.xr 07/21/19 Rx 300 MG TAB*] cloNIDine TAB* [Catapres 0.1 MG 0.1 mg PO BEDTIME #30 tab 07/21/19 Rx TAB*] hydrOXYzine HCL TAB* [Atarax TAB 50 mg PO Q4H PRN #120 tab 07/21/19 Rx 50 MG *] Negative: Other - self-inflicted harm Positive: Other - SI with plan All Other Systems Reviewed And Are Negative: Yes Physical Exam - Summary Physical Exam Summary: General: Well-developed, Well-nourished male. No acute distress. HEENT: Normocephalic, Atraumatic. Eyes: Conjuctiva normal, PERRL. Oropharynx: Clear, mucous membranes moist, (-) exudates. Neck: Soft, FROM, (-) lymphadenopathy, (-) thyromegaly, (-) JVD. Cardiovascular: Normal sinus rhythm, (-) murmur. Lungs: Clear to auscultation bilaterally (-) wheezes, (-) rales, (-) rhonchi. Abdomen: Soft, non-tender, non-distended, (-) organomegaly, normal bowel sounds. Back: (-) CVA tenderness Extremities: No edema. Skin: Warm, dry, (-) rash. Neuro: Alert and oriented x3, moves all extremities equally. No ataxia. No gait disturbance. No sensory deficit. Normal strength, normal sensation. Psychiatric: Mood normal, flat affect. Triage Information Reviewed: Yes Vital Signs On Initial Exam: Initial Vitals Temp Pulse Resp BP Pulse Ox 98 F 60 16 154/88 98 10/28/19 04:16 10/28/19 04:16 10/28/19 04:16 10/28/19 04:16 10/28/19 04:16 Vital Signs Reviewed: Yes Procedures - Sedation Patient Received Moderate/Deep Sedation with Procedure: No Diagnostics - Vital Signs Vital Signs Temp Pulse Resp BP Pulse Ox 10/28/19 04:16 98 F 60 16 154/88 98 - Laboratory Lab Results: Lab Results 10/28/19 10/28/19 Range/Units 04:19 04:19 WBC 13.9 H (3.5-10.8) 10^3/uL RBC 4.62 (4.18-5.48) 10^6 /uL Hgb 13.8 L (14.0-18.0) g/dL Hct 41 L (42-52) % MCV 88 (80-94) fL MCH 30 (27-31) pg MCHC 34 (31-36) g/dL RDW 15 (10-15) % Plt Count 234 (150-450) 10^3/uL MPV 7.4 (7.4-10.4) fL Neut % (Auto) 74.3 % Lymph % (Auto) 19.5 % Kinney % (Auto) 4.7 % Eos % (Auto) 0.6 % Baso % (Auto) 0.9 % Absolute Neuts (auto) 10.3 H (1.5-7.7) 10^3/ul Absolute Lymphs (auto) 2.7 (1.0-4.8) 10^3/ul Absolute Monos (auto) 0.7 (0-0.8) 10^3/ul Absolute Eos (auto) 0.1 (0-0.6) 10^3/ul Absolute Basos (auto) 0.1 (0-0.2) 10^3/ul Absolute Nucleated RBC 0.0 10^3/ul Nucleated RBC % 0.1 Sodium 139 (135-145) mmol/L Potassium 3.3 L (3.5-5.0) mmol/L Chloride 101 (101-111) mmol/L Carbon Dioxide 30 (22-32) mmol/L Anion Gap 8 (2-11) mmol/L BUN 12 (6-24) mg/dL Creatinine 1.26 H (0.67-1.17) mg/dL Est GFR ( Amer) 77.1 (>60) Est GFR (Non-Af Amer) 63.7 (>60) BUN/Creatinine Ratio 9.5 (8-20) Glucose 94 (70-100) mg/dL Calcium < 4.0 L* (8.6-10.3) mg/dL Total Bilirubin 1.10 H (0.2-1.0) mg/dL AST 33 (13-39) U/L ALT 17 (7-52) U/L Alkaline Phosphatase 61 (34-104) U/L Total Protein 7.9 (6.4-8.9) g/dL Albumin 4.8 (3.2-5.2) g/dL Globulin 3.1 (2-4) g/dL Albumin/Globulin Ratio 1.5 (1-3) TSH Pending Beta HCG, Quant 0.72 mIU/mL Salicylates < 2.50 (<30) mg/dL Acetaminophen < 15 mcg/mL Serum Alcohol < 10 (<10) mg/dL Result Diagrams: 10/28/19 04:19 10/28/19 05:12 Lab Statement: Any lab studies that have been ordered have been reviewed, and results considered in the medical decision making process. Re-Evaluation - Re-Evaluation First Eval Re-Evaluation Time: 05:00 Comment: Patient is medically clear for MHE. Course/Dx - Course Course Of Treatment: 39 year old male presents to get help for his suicidal thoughts. he hasnt been taking medications as directed. used cocaine tonight. no significant physical exam findings. workup shows only minor abnormalities. referred for mental health evaluation. signed out at change of shift. - Differential Dx/Clinical Impression Provider Diagnosis: Tobacco use, Suicidal ideation, Cocaine use Discharge ED - Sign-Out/Discharge Documenting (check all that apply): Sign-Out Patient Signing out patient TO: Roc Hdez - Patient is a sign-out to Dr. Roc Hdez MD, at 0700 on 10/28/2019, pending MHE and disposition. - Discharge Plan Condition: Stable Disposition: [place]IATR[place] [place] Billing Disposition and Condition Condition: STABLE Disposition: Psychiatric Facility [facility] - Attestation Statements Document Initiated by Scribe: Yes Documenting Scribe: Juani Mason Provider For Whom Danniibe is Documenting (Include Credential): Dr. Nga Zimmer MD Scribe Attestation: I, Juani Mason, scribed for Dr. Nga Zimmer MD on 10/29/19 at 0044. Scribe Documentation Reviewed: Yes Provider Attestation: The documentation as recorded by the lucila, Juani Mason accurately reflects the service I personally performed and the decisions made by me, Dr. Nga Zimmer MD Status of Scribe Document: Viewed
[2019-10-28 05:13] LABS: TSH (Thyroid Stimulating Horm) 3.37 mcIU/mL (0.34-5.60)
[2019-10-28 05:42] LABS: Albumin 4.5 g/dL (3.2-5.2); Albumin/Globulin Ratio 1.6 (1-3); BUN/Creatinine Ratio 9.6 (8-20); Calcium 9.3 mg/dL (8.6-10.3); EGFR African American 77.8 (>60); EGFR Non-African American 64.3 (>60); Globulin 2.8 g/dL (2-4); Potassium 3.4 mmol/L (3.5-5.0); Total Bilirubin 1.1 mg/dL (0.2-1.0); Total Protein 7.3 g/dL (6.4-8.9)
[2019-10-28 06:27] LABS: Urine Appearance Clear; Urine Bilirubin Negative (Negative); Urine Blood Negative (Negative); Urine Color Yellow; Urine Glucose Negative (Negative); Urine Ketones Negative (Negative); Urine Nitrite Negative (Negative); Urine Protein 2+(100 mg/dL) (Negative); Urine Urobilinogen Negative (Negative)
[2019-10-28 06:35] LABS: Urine Bacteria 1+ (Absent); Urine Red Blood Cell Trace(0-2/hpf) (Absent); Urine Squamous Epithelial Cell Present (Absent); Urine White Blood Cell Trace(0-5/hpf) (Absent)
[2019-10-28 06:42] LABS: Urine Benzodiazepine Screen None Detected (None Detect); Urine Opiates Screen None Detected (None Detect)
--- NOTE | 2019-10-28 07:12 | ED ---
Progress - Progress Note Progress Note: This pt is a sign out to Dr. Roc Hdez MD from Dr. Nga Zimmer MD at shift change 0700 10/28/2019 pending a MHE and disposition. Re-Evaluation - Re-Evaluation First Eval Re-Evaluation Time: 08:05 Change: Unchanged Comment: Pt requested HIV testing. Course/Dx - Course Course Of Treatment: This pt is a sign out to Dr. Roc Hdez MD from Dr. Nga Zimmer MD at shift change 0700 10/28/2019 pending a MHE and disposition. Per Dr. Loco, psychiatrist, the pt will be [place] [facility] with a Dx of schizoeffective disorder. - Diagnoses Provider Diagnoses: Tobacco use, Suicidal ideation, Cocaine use - Provider Notifications Discussed Care Of Patient With: Gagan Loco Time Discussed With Above Provider: 10:52 Instructed by Provider To: Admit As Inpatient Admit/Transition Orders Completed By ED Provider: Yes Discharge ED - Sign-Out/Discharge Documenting (check all that apply): Patient Departure - admitted - Discharge Plan Condition: Stable Disposition: [place]IATR[place] Patient Education Materials: How to Stop Smoking (ED) Referrals: [facility] [Outside] - Billing Disposition and Condition Condition: STABLE Disposition: Psychiatric Facility [facility] - Attestation Statements Document Initiated by Scribe: Yes Documenting Scribe: Joey Antony Provider For Whom Scribe is Documenting (Include Credential): Roc Hdez MD Scribe Attestation: IJoey, scribed for Roc Hdez MD on 10/28/19 at 1218. Scribe Documentation Reviewed: Yes Provider Attestation: The documentation as recorded by the Joey gaytan accurately reflects the service I personally performed and the decisions made by , Roc Hdez MD Status of Scribe Document: Viewed
[2019-10-28] MEDS ORDERED: Nicotine* 4MG (FRUIT FLAVOR) GUM PO ONE (08:14)
[2019-10-28] MEDS ORDERED: Acetaminophen TAB* 325 MG PO PRN (11:23)
[2019-10-28] MEDS ORDERED: Al Hydrox/Mg Hydrox/Simet LIQ* 30 ML UDC PO PRN (11:23)
[2019-10-28] MEDS ORDERED: chlorproMAZINE TAB* 100 MG PO PRN (11:25)
[2019-10-28] MEDS: Nicotine* 4MG (FRUIT FLAVOR) GUM PO PRN (19:11)
[2019-10-28] MEDS ORDERED: QUEtiapine TAB* 300 MG PO SCH (21:00)
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
[2019-10-29] MEDS: Nicotine PATCH 21 MG/24 HR* PATCH TRANSDERM SCH (16:38)
[2019-10-29] MEDS: Nicotine* 4MG (FRUIT FLAVOR) GUM PO PRN (18:05)
[2019-10-29] MEDS: Nicotine Patch Removal NOTE PATCH OFF SCH (21:31)
[2019-10-29] MEDS: ARIPiprazole TAB* 5 MG PO SCH (21:31)
[2019-10-30] MEDS: Nicotine* 4MG (FRUIT FLAVOR) GUM PO PRN ×3 (08:24→19:46)
[2019-10-30] MEDS: Nicotine PATCH 21 MG/24 HR* PATCH TRANSDERM SCH (08:24)
--- NOTE | 2019-10-30 11:25 | PN ---
BSU: Group Therapy Note - Service Type Service Type: 57324 Group Psychotherapy - Cognitive Behavioral Group Therapy ( CBT):Patient was attentive and participatory in CBT programming this morning, and remained in good behavioral control. Patient expressed positive insights regarding relevant treatment interventions and goals.
[2019-10-30] MEDS: hydrOXYzine HCL TAB* 50 MG PO PRN ×2 (12:14→18:15)
[2019-10-30 12:19] LABS: HIV 4th Generation Nonreactive (Nonreactive)
[2019-10-30] MEDS ORDERED: Benzocaine/Menthol LOZ* 1 LOZENGE MT PRN (12:19)
[2019-10-30 12:30] LABS: Hepatitis C Antibody Negative (Negative)
--- NOTE | 2019-10-30 14:15 | PN ---
Subjective - Subjective Date of Service: 10/30/19 Service Type: 83415 Hosp care 25 min moderate complexity Subjective: Patient pleasantly approaches auto service writer to inquire about computer privileges. He reports denies side effects from oral aripiprazole and is eager to receive RAMIREZ. He agrees to continue with oral aripiprazole to assess for tolerance until after the weekend. He reports his mood to be "ok" and endorses impoverished thought process. He denies AH or VH. He denies thoughts of suicide or delusional thoughts. He reports sleeping well for the most part, with the exception of being awakened during observation checks. Objective - General Observations Appearance: Well Groomed Stature: WNL Posture: WNL Eye Contact: Average Behavior/Activity: WNL - Interaction Observations Attitude Towards Examiner: Cooperative Stated Mood: Euthymic Affect: Blunted Speech Pattern/Tone: Clear, Appropriate, Normal Volume Thought Process: Impoverished Perception: WNL Thought Content: Depressive, Self-Deprecatory Thought Process: Lethality: Passive Wish Hallucination Type: Denies Delusion Type: Denies - Cognitive Function Orientation: A&O x 4 Level of Consciousness: Alert Cognition: Impaired Attention/Concentration Estimated Intelligence: Normal Insight: Difficulty Acknowledging Presence of Psyciatric Problems Judgment Within Normal Limits: No Ability to Make Reasonable Decisions: Moderately Impaired - Medication Compliance Cooperative with Inpatient Medication Regimen: Yes - Group Participation Participates in Group Activities: Partial Assessment - Assessment Merits Inpatient Hospitalization: For Immediate Safety, For Stabilization Inpatient DSM-V Dx: F25.9 Clinical Impression: 39yo black male with history of schizoaffective disorder and cocaine abuse disorder. He presented to ED after flagging down law enforcement to take him to the hospital due to suicidal thoughts. He has consented to trial of oral aripiprazole and is interested in receiving the monthly injectable. He merits hospitalization for immediate safety and stabilization. Plan - Plan Treatment Plan: Name: DINO RUTLEDGE Birthdate: 1980 [id number] continue acute intensive psychiatric treatment. may decrease to q30min obs and allow staff pass and computer use. continue oral aripiprazole. if tolerates, will receive initial doses of Long- acting injectable on 11/02/19. Awaiting urine specimen for Gonorrhea/chlamydia testing. Other STI tests are negative. discharge to include referrals for MH and [facility] treatment. Continued Medication Management: Start Medication Medications: Current Medications Acetaminophen (Tylenol Tab*) 650 mg PO Q4H PRN PRN Reason: for pain; or Temp >101 F Al Hydrox/Mg Hydrox/Simethicone (Maalox Plus*) 30 ml PO Q4H PRN PRN Reason: INDIGESTION Aripiprazole (Abilify Tab*) 5 mg PO BEDTIME [facility] Last Admin: 10/29/19 21:31 Dose: 5 mg Aripiprazole Lauroxil (Aristada) 882 mg IM ONCE ONE Stop: 11/01/19 10:01 Aripiprazole Lauroxil (Aristada Initio (First Dose)) 675 mg IM ONCE ONE Stop: 11/01/19 10:01 Chlorpromazine HCl (Thorazine Tab*) 100 mg PO Q6H PRN PRN Reason: AGITATION Hydroxyzine HCl (Atarax Tab*) 50 mg PO Q6H PRN PRN Reason: anxiety/insomnia Last Admin: 10/30/19 12:14 Dose: 50 mg Nicotine (Nicotine Patch 21 Mg/24 Hr*) 1 patch TRANSDERM DAILY [facility] Last Admin: 10/30/19 08:24 Dose: 1 patch Nicotine Polacrilex (Nicotine Gum*) 4 mg PO Q2H PRN PRN Reason: CRAVING Last Admin: 10/30/19 08:24 Dose: 4 mg Pharmacy Profile Note (Nicotine Patch Removal Note*) 1 note PATCH OFF 2100 [facility] Last Admin: 10/29/19 21:31 Dose: Not Given Throat Lozenges (Chloraseptic German*) 1 german MT Q2HR PRN PRN Reason: SORE THROAT - Discharge Plan Discharge Plan: Inpatient Hospitalization
[2019-10-30] MEDS: ARIPiprazole TAB* 5 MG PO SCH (21:08)
[2019-10-30] MEDS: Nicotine Patch Removal NOTE PATCH OFF SCH (21:11)
[2019-10-31] MEDS: Nicotine PATCH 21 MG/24 HR* PATCH TRANSDERM SCH (08:21)
[2019-10-31] MEDS: Nicotine* 4MG (FRUIT FLAVOR) GUM PO PRN ×5 (08:22→21:00)
--- NOTE | 2019-10-31 15:11 | PN ---
Subjective - Subjective Date of Service: 10/31/19 Service Type: [id number] Hosp care 25 min moderate complexity Subjective: Dino appears to be doing well and denies mood, thoughts or perceptual disturbances. Says his current meds helped him a lot and awaiting the RAMIREZ on MON. Denies SI or HI. Reading a book and enjoying it. Objective - General Observations Appearance: Disheveled, Unkempt Appears Stated Age: Yes Stature: WNL Posture: WNL Eye Contact: Average Behavior/Activity: WNL - Interaction Observations Attitude Towards Examiner: Cooperative Stated Mood: Euthymic Affect: Full Speech Pattern/Tone: Clear, Appropriate, Normal Volume Thought Process: Coherent, Goal Directed Perception: WNL Thought Content: WNL Hallucination Type: Denies Delusion Type: Denies - Cognitive Function Orientation: A&O x 4 Level of Consciousness: Awake, Alert, Appropriate Cognition: WNL Estimated Intelligence: Normal Insight: WNL Judgment Within Normal Limits: Yes Ability to Make Reasonable Decisions: Mildly Impaired - Medication Compliance Cooperative with Inpatient Medication Regimen: Yes - Group Participation Participates in Group Activities: Yes Assessment - Assessment Merits Inpatient Hospitalization: For Stabilization, Consolidate Improvements, For Discharge Planning Inpatient DSM-V Dx: F25.9 Clinical Impression: 39yo black male with history of schizoaffective disorder and cocaine abuse disorder. He presented to ED after flagging down law enforcement to take him to the hospital due to suicidal thoughts. He has consented to trial of oral aripiprazole and is interested in receiving the monthly injectable. He merits hospitalization for immediate safety and stabilization. Plan - Plan Treatment Plan: Name: DINO RUTLEDGE Birthdate: 1980 [id number] continue acute intensive psychiatric treatment. may decrease to q30min obs and allow staff pass and computer use. continue oral aripiprazole. if tolerates, will receive initial doses of Long- acting injectable on 11/02/19. Awaiting urine specimen for Gonorrhea/chlamydia testing. Other STI tests are negative. discharge to include referrals for MH and [facility] treatment. Continued Medication Management: Continue Outpt Medication Medications: Current Medications Acetaminophen (Tylenol Tab*) 650 mg PO Q4H PRN PRN Reason: for pain; or Temp >101 F Al Hydrox/Mg Hydrox/Simethicone (Maalox Plus*) 30 ml PO Q4H PRN PRN Reason: INDIGESTION Aripiprazole (Abilify Tab*) 5 mg PO BEDTIME [facility] Last Admin: 10/30/19 21:08 Dose: 5 mg Aripiprazole Lauroxil (Aristada) 882 mg IM ONCE ONE Stop: 11/01/19 10:01 Aripiprazole Lauroxil (Aristada Initio (First Dose)) 675 mg IM ONCE ONE Stop: 11/01/19 10:01 Chlorpromazine HCl (Thorazine Tab*) 100 mg PO Q6H PRN PRN Reason: AGITATION Hydroxyzine HCl (Atarax Tab*) 50 mg PO Q6H PRN PRN Reason: anxiety/insomnia Last Admin: 10/30/19 18:15 Dose: 50 mg Nicotine (Nicotine Patch 21 Mg/24 Hr*) 1 patch TRANSDERM DAILY [facility] Last Admin: 10/31/19 08:21 Dose: 1 patch Nicotine Polacrilex (Nicotine Gum*) 4 mg PO Q2H PRN PRN Reason: CRAVING Last Admin: 10/31/19 13:05 Dose: 4 mg Pharmacy Profile Note (Nicotine Patch Removal Note*) 1 note PATCH OFF 2099 [facility] Last Admin: 10/30/19 21:11 Dose: Not Given Throat Lozenges (Chloraseptic Ligia*) 1 ligia MT Q2HR PRN PRN Reason: SORE THROAT - Discharge Plan Discharge Plan: Outpatient Follow Up Outpatient Program: [facility]
[2019-10-31] MEDS: ARIPiprazole TAB* 5 MG PO SCH (20:59)
[2019-10-31] MEDS: Nicotine Patch Removal NOTE PATCH OFF SCH (21:01)
[2019-11-01] MEDS: Nicotine PATCH 21 MG/24 HR* PATCH TRANSDERM SCH (08:28)
[2019-11-01] MEDS: Nicotine* 4MG (FRUIT FLAVOR) GUM PO PRN ×2 (08:29→18:57)
[2019-11-01] MEDS: hydrOXYzine HCL TAB* 50 MG PO PRN ×2 (08:58→18:57)
[2019-11-01] MEDS: ARIPiprazole TAB* 5 MG PO SCH (20:51)
[2019-11-01] MEDS: Nicotine Patch Removal NOTE PATCH OFF SCH (20:51)
[2019-11-02] MEDS: Nicotine PATCH 21 MG/24 HR* PATCH TRANSDERM SCH (08:46)
[2019-11-02] MEDS: Nicotine* 4MG (FRUIT FLAVOR) GUM PO PRN ×2 (08:46→11:30)
[2019-11-02] MEDS: hydrOXYzine HCL TAB* 50 MG PO PRN (09:53)
[2019-11-02 12:19] VITALS: BP 117/63
[2019-11-02 13:20] LABS: Chlamydia trachomatis NAA Negative (Negative); Neisseria gonorrhoeae (GC) NAA Negative (Negative)
--- NOTE | 2019-11-04 00:03 | DS ---
CC: [facility] * DISCHARGE SUMMARY: DATE OF ADMISSION: 10/28/19 DATE OF DISCHARGE: 11/02/19 SUPERVISING PSYCHIATRIST: Dr. Gagan Loco.* (DICTATED BY BJ DANIELS NP) DISCHARGE DIAGNOSES: 1. Schizoaffective disorder. 2. Cocaine-induced mood disorder. CONDITION AT THE TIME OF DISCHARGE: Improved. The patient is pleasant upon approach. He reports improved mood. He denies suicidal ideation. He reports tolerating oral aripiprazole well and is agreeable to receiving booster injections of Aristada prior to discharge. He was given Aristada 882 along with Initio 675 on the 11/02/19. He reported readiness for discharge and agreed to follow up with [facility]. The patient declined offers of substance use treatment referrals or medication for such. The patient is discharged to home. MENTAL STATUS EXAM: Louie is a 39-year-old black male who appears stated age. He is average build. He is well groomed and casually dressed in his own clothing. He is alert and oriented x3. He is pleasant and cooperative. Eye contact is good. Speech is soft, articulate and spontaneous. Concentration good. Memory 3/3. Mood is "okay" with blunted affect. Thought process is logical, coherent and goal directed. Thought content is negative for suicidal or homicidal ideation. He reports resolution of auditory and visual hallucinations. Insight and judgment are fair. Fund of knowledge is excellent. He appears to have average intellect. INSTRUCTIONS GIVEN TO PATIENT: A. Medications: As stated above, he received 2 initial doses of aripiprazole long acting injectant on day of discharge 11/02/19. B. Diet: Regular. C. Activity: As tolerated. Tobacco cessation was declined by the patient. Pending labs, gonorrhea, chlamydia, urine and he is next due for Abilify monthly injection by 11/30/19. D. Followup care: The patient was referred to [facility] for an intake on 11/06/19. He was given information about [facility] to establish primary care. E. Substance use followup: The patient declined offer of substance use treatment. HOSPITAL COURSE: Part A: Reason for admission: The patient presented to the ED under 9.41 status after waving the police down in the street to bring him to the hospital due to suicidal ideation. He continued to endorse suicidal ideation in the emergency room and on the first day of admission to the [facility]. During his initial presentation, he was somewhat unwilling to speak with team. He appeared very uncomfortable. He was picking at adhesive remnants on the skin , made very little eye contact, mumbled and spoke in short sentences. He reported he is becoming more and more suicidal for the last 3 months and that the thoughts kept building. He reports he is currently feeling 8/10 for anxiety and depression. He states he is having communication problems with family and friends. 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 He states he likes it there because people mind their own business. Louie was positive for cocaine and cannabinoids in his urine drug screen. He minimized this use stating he last used cocaine 2 days ago and declined to say anything further on the topic. He appears physically uncomfortable and highly anxious. He reports sleep disruption. He is not interested in decreasing his energy any lower. He reports poor concentration and decreased appetite. Part B: Psychiatric treatment rendered: The patient was admitted to the adult behavioral services unit and placed on 15 minute checks for his own safety. He was encouraged to participate in support milieu, individual sessions with staff , and psychoeducational groups. He agreed to oral trial of aripiprazole and was interested in having this medication as a monthly injection. He was increasingly pleasant. He demonstrated improved sleep. He was decreased to 30 minute observation and allowed staff pass. He was interactive with select peers and tolerated oral trial of Abilify. He reported that the current medication helped him a lot. He denied suicidal ideation and denied any perceptual disturbances. Louie did well in the inpatient setting. We hoped that he continues to work with [facility]. BJ DANIELS, CONSUELO [id number]/[facility] #: [id number] [place]
== END 2019-11-02 13:00 | disposition home or self-care (01) | DRG 750 ==
LOC: ED 04:11 → UNDOADMIN 11:24 → BSU 11:24 → ED 12:44
PROVIDERS: ADMIT Psychiatry & Neurology Psychiatry; ATTEND Psychiatry & Neurology Psychiatry
DX: F25.9 Schizoaffective disorder, unspecified (principal); R45.851 Suicidal ideations; F14.94 Cocaine use, unspecified with cocaine-induced mood disorder; Z88.2 Allergy status to sulfonamides
CPT/HCPCS: 36415; 80053; 80307; 80320; 80329; 81003; 81015; 84443; 84702; 85025; 86803; 87086; 87389; 87491; 87591; 90853; 99222; 99232; 99284; A9270-GY; G0480

== ENCOUNTER 2020-10-22 13:11 | Inpatient (IN) ==
[2020-10-22 14:06] LABS: Urine Appearance Clear; Urine Bilirubin Negative (Negative); Urine Blood 1+ (Negative); Urine Color Yellow; Urine Glucose Negative (Negative); Urine Ketones Negative (Negative); Urine Nitrite Negative (Negative); Urine Protein 3+(>=500 mg/dL) (Negative); Urine Urobilinogen Negative (Negative)
[2020-10-22 14:21] LABS: Urine Bacteria Absent (Absent); Urine Red Blood Cell Trace(0-2/hpf) (Absent); Urine Squamous Epithelial Cell Present (Absent); Urine White Blood Cell Trace(0-5/hpf) (Absent)
[2020-10-22 14:56] LABS: Urine Benzodiazepine Screen None Detected (None Detect); Urine Cannabinoids Screen None Detected (None Detect); Urine Opiates Screen None Detected (None Detect)
[2020-10-22] MEDS ORDERED: Al Hydrox/Mg Hydrox/Simet LIQ 30 ML UDC PO PRN (16:40)
[2020-10-22] MEDS: Nicotine PATCH 14 MG/24 HR PATCH TRANSDERM SCH (19:17)
[2020-10-23] MEDS: Nicotine PATCH 14 MG/24 HR PATCH TRANSDERM SCH (08:22)
[2020-10-23] MEDS: Vitamin THERAPEUTIC TAB PO SCH (08:22)
[2020-10-24] MEDS: Vitamin THERAPEUTIC TAB PO SCH (13:41)
[2020-10-24] MEDS: Nicotine PATCH 14 MG/24 HR PATCH TRANSDERM SCH (13:41)
[2020-10-25] MEDS: Vitamin THERAPEUTIC TAB PO SCH (10:33)
[2020-10-25] MEDS: Nicotine PATCH 14 MG/24 HR PATCH TRANSDERM SCH (10:33)
[2020-10-26] MEDS: Vitamin THERAPEUTIC TAB PO SCH (11:43)
[2020-10-26] MEDS: Nicotine PATCH 14 MG/24 HR PATCH TRANSDERM SCH (11:43)
[2020-10-27] MEDS: Vitamin THERAPEUTIC TAB PO SCH (09:26)
[2020-10-27] MEDS: Nicotine PATCH 14 MG/24 HR PATCH TRANSDERM SCH (09:26)
[2020-10-28] MEDS: Nicotine PATCH 14 MG/24 HR PATCH TRANSDERM SCH (07:57)
[2020-10-28] MEDS: Vitamin THERAPEUTIC TAB PO SCH (07:57)
[2020-10-29] MEDS: Vitamin THERAPEUTIC TAB PO SCH (09:35)
[2020-10-29] MEDS: Nicotine PATCH 14 MG/24 HR PATCH TRANSDERM SCH (09:35)
[2020-10-30] MEDS: Nicotine PATCH 14 MG/24 HR PATCH TRANSDERM SCH (08:51)
[2020-10-30] MEDS: Vitamin THERAPEUTIC TAB PO SCH (08:51)
[2020-10-30] MEDS: Nicotine GUM 2MG FRUIT FLAVOR PO PRN (22:59)
[2020-10-31] MEDS: Nicotine PATCH 14 MG/24 HR PATCH TRANSDERM SCH ×2 (09:54→20:38)
[2020-10-31] MEDS: Vitamin THERAPEUTIC TAB PO SCH (09:55)
[2020-10-31] MEDS: Nicotine GUM 2MG FRUIT FLAVOR PO PRN ×3 (12:37→23:40)
[2020-11-01] MEDS: Nicotine GUM 2MG FRUIT FLAVOR PO PRN ×3 (14:42→21:03)
[2020-11-01] MEDS: Vitamin THERAPEUTIC TAB PO SCH (15:24)
[2020-11-01] MEDS: Nicotine PATCH 14 MG/24 HR PATCH TRANSDERM SCH (15:24)
[2020-11-02] MEDS: Nicotine GUM 2MG FRUIT FLAVOR PO PRN ×4 (08:55→22:15)
[2020-11-02] MEDS: Nicotine PATCH 14 MG/24 HR PATCH TRANSDERM SCH (08:56)
[2020-11-02] MEDS: Vitamin THERAPEUTIC TAB PO SCH (09:03)
[2020-11-03] MEDS: Nicotine PATCH 14 MG/24 HR PATCH TRANSDERM SCH (11:16)
[2020-11-03] MEDS: Vitamin THERAPEUTIC TAB PO SCH (11:16)
[2020-11-03] MEDS: Nicotine GUM 2MG FRUIT FLAVOR PO PRN (19:52)
[2020-11-04] MEDS: Nicotine GUM 2MG FRUIT FLAVOR PO PRN ×4 (08:51→21:38)
[2020-11-04] MEDS: Nicotine PATCH 14 MG/24 HR PATCH TRANSDERM SCH (12:18)
[2020-11-04] MEDS: Vitamin THERAPEUTIC TAB PO SCH (12:18)
[2020-11-05] MEDS: Vitamin THERAPEUTIC TAB PO SCH (07:42)
[2020-11-05] MEDS: Nicotine PATCH 14 MG/24 HR PATCH TRANSDERM SCH (07:42)
[2020-11-05] MEDS: Nicotine GUM 2MG FRUIT FLAVOR PO PRN ×2 (15:06→23:27)
[2020-11-06] MEDS: Vitamin THERAPEUTIC TAB PO SCH (07:50)
[2020-11-06] MEDS: Nicotine PATCH 14 MG/24 HR PATCH TRANSDERM SCH (07:50)
[2020-11-06] MEDS: Nicotine GUM 2MG FRUIT FLAVOR PO PRN (21:27)
[2020-11-07] MEDS: Vitamin THERAPEUTIC TAB PO SCH (07:59)
[2020-11-07] MEDS: Nicotine PATCH 14 MG/24 HR PATCH TRANSDERM SCH (07:59)
[2020-11-07] MEDS: Nicotine GUM 2MG FRUIT FLAVOR PO PRN ×6 (08:23→22:59)
[2020-11-07 22:15] VITALS: BP 137/76
[2020-11-08] MEDS: Nicotine PATCH 14 MG/24 HR PATCH TRANSDERM SCH (09:15)
[2020-11-08] MEDS: Vitamin THERAPEUTIC TAB PO SCH (09:15)
[2020-11-08] MEDS: Nicotine GUM 2MG FRUIT FLAVOR PO PRN (09:48)
== END 2020-11-08 12:33 | disposition home or self-care (01) | DRG 774 ==
LOC: ED 13:11 → BSU 18:24
PROVIDERS: ADMIT Psychiatry & Neurology Psychiatry; ATTEND Psychiatry & Neurology Psychiatry

== ENCOUNTER 2020-11-21 10:55 | Inpatient (IN) ==
[2020-11-21 11:50] LABS: ABS Basophils 0.1 10^3/ul (0-0.2); ABS Eosinophils 0.3 10^3/ul (0-0.6); ABS Lymphocytes 2.3 10^3/ul (1.0-4.8); ABS Monocytes 0.5 10^3/ul (0-0.8); ABS Neutrophils 4.1 10^3/ul (1.5-7.7); Eosinophil % 3.8 %; Hematocrit 44 % (42-52); Hemoglobin 15.1 g/dL (14.0-18.0); Lymphocyte % 31.8 %; Mean Corpuscular HGB Conc 34 g/dL (31-36); Mean Corpuscular Hemoglobin 30 pg (27-31); Mean Corpuscular Volume 87 fL (80-94); Mean Platelet Volume 7.4 fL (7.4-10.4); Platelet Count 247 10^3/uL (150-450); Red Blood Count 5.03 10^6 /uL (4.18-5.48); Red Cell Distribution Width 14 % (10-15); White Blood Count 7.3 10^3/uL (3.5-10.8)
[2020-11-21 12:12] LABS: Urine Appearance Clear; Urine Bilirubin Negative (Negative); Urine Blood Negative (Negative); Urine Color Yellow; Urine Glucose Negative (Negative); Urine Ketones Trace (Negative); Urine Nitrite Negative (Negative); Urine Protein Negative (Negative); Urine Specific Gravity 1.008 (1.010-1.030); Urine Urobilinogen Negative (Negative)
[2020-11-21 12:14] LABS: Urine Bacteria Absent (Absent); Urine Red Blood Cell Trace(0-2/hpf) (Absent); Urine Squamous Epithelial Cell Present (Absent); Urine White Blood Cell 2+(11-20/hpf) (Absent)
[2020-11-21 12:27] LABS: ALT 16 U/L (7-52); Albumin 4.5 g/dL (3.2-5.2); Albumin/Globulin Ratio 1.7 (1-3); Alkaline Phosphatase 83 U/L (34-104); BUN/Creatinine Ratio 10.7 (8-20); Blood Urea Nitrogen 15 mg/dL (6-24); CO2 Carbon Dioxide 28 mmol/L (22-32); Calcium 9.3 mg/dL (8.6-10.3); Chloride 103 mmol/L (101-111); EGFR African American 67.9 (>60); EGFR Non-African American 56.1 (>60); Globulin 2.7 g/dL (2-4); Glucose 84 mg/dL (70-100); Sodium 137 mmol/L (135-145); Total Protein 7.2 g/dL (6.4-8.9)
[2020-11-21 12:32] LABS: Acetaminophen < 15 mcg/mL; Alcohol, S < 10 mg/dL (<10); Salicylate < 2.50 mg/dL (<30); TSH Ultra Thyroid Stim Horm 1.18 mcIU/mL (0.34-5.60)
[2020-11-21 13:16] LABS: Urine Benzodiazepine Screen None Detected (None Detect); Urine Cannabinoids Screen None Detected (None Detect); Urine Opiates Screen None Detected (None Detect)
[2020-11-21 14:19] LABS: Anion Gap 6 mmol/L (2-11)
[2020-11-21] MEDS ORDERED: Al Hydrox/Mg Hydrox/Simet LIQ 30 ML UDC PO PRN (15:06)
[2020-11-22] MEDS: Nicotine PATCH 21 MG/24 HR PATCH TRANSDERM SCH (11:40)
[2020-11-22] MEDS: Vitamin THERAPEUTIC TAB PO SCH (11:40)
[2020-11-23] MEDS: Nicotine PATCH 21 MG/24 HR PATCH TRANSDERM SCH (11:44)
[2020-11-23] MEDS: Vitamin THERAPEUTIC TAB PO SCH (11:44)
[2020-11-23] MEDS: Nicotine GUM 4MG FRUIT FLAVOR PO PRN (12:20)
[2020-11-24] MEDS: Vitamin THERAPEUTIC TAB PO SCH (07:50)
[2020-11-24] MEDS: Nicotine PATCH 21 MG/24 HR PATCH TRANSDERM SCH (07:50)
[2020-11-24 08:20] LABS: HDL Cholesterol 38.2 mg/dL
[2020-11-24 08:21] LABS: Potassium Redraw 3.9 mmol/L (3.5-5.0)
[2020-11-24] MEDS: Nicotine GUM 4MG FRUIT FLAVOR PO PRN ×2 (14:32→21:40)
[2020-11-24] MEDS: Nicotine Lozenge mini 4 MG LOZNG.MINI MT PRN (19:59)
[2020-11-25] MEDS: Nicotine PATCH 21 MG/24 HR PATCH TRANSDERM SCH (09:18)
[2020-11-25] MEDS: Nicotine GUM 4MG FRUIT FLAVOR PO PRN ×3 (09:20→20:52)
[2020-11-25] MEDS: Vitamin THERAPEUTIC TAB PO SCH (09:20)
[2020-11-25] MEDS: Nicotine Lozenge mini 4 MG LOZNG.MINI MT PRN ×2 (11:08→13:44)
[2020-11-26] MEDS: Vitamin THERAPEUTIC TAB PO SCH (08:33)
[2020-11-26] MEDS: Nicotine PATCH 21 MG/24 HR PATCH TRANSDERM SCH (08:33)
[2020-11-26] MEDS: Nicotine GUM 4MG FRUIT FLAVOR PO PRN ×4 (12:18→19:25)
[2020-11-27] MEDS: Nicotine PATCH 21 MG/24 HR PATCH TRANSDERM SCH (08:09)
[2020-11-27] MEDS: Vitamin THERAPEUTIC TAB PO SCH (08:09)
[2020-11-27] MEDS: Nicotine GUM 4MG FRUIT FLAVOR PO PRN ×4 (11:02→21:10)
[2020-11-28] MEDS: Vitamin THERAPEUTIC TAB PO SCH (09:15)
[2020-11-28] MEDS: Nicotine GUM 4MG FRUIT FLAVOR PO PRN ×4 (09:16→18:43)
[2020-11-28] MEDS: Nicotine PATCH 21 MG/24 HR PATCH TRANSDERM SCH (09:16)
[2020-11-28] MEDS: Nicotine Lozenge mini 4 MG LOZNG.MINI MT PRN ×2 (11:07→14:28)
[2020-11-28] MEDS ORDERED: Paliperidone SUSTENNA 234 MG/1.5 ML IM ONE (15:57)
[2020-11-29] MEDS: Nicotine GUM 4MG FRUIT FLAVOR PO PRN ×4 (08:31→20:41)
[2020-11-29] MEDS: Vitamin THERAPEUTIC TAB PO SCH (08:31)
[2020-11-29] MEDS: Nicotine PATCH 21 MG/24 HR PATCH TRANSDERM SCH (08:31)
[2020-11-29] MEDS: Nicotine Lozenge mini 4 MG LOZNG.MINI MT PRN ×2 (10:54→15:28)
[2020-11-30 08:11] VITALS: BP 120/79
[2020-11-30] MEDS: Nicotine PATCH 21 MG/24 HR PATCH TRANSDERM SCH (09:02)
[2020-11-30] MEDS: Vitamin THERAPEUTIC TAB PO SCH (09:02)
[2020-11-30] MEDS: Nicotine GUM 4MG FRUIT FLAVOR PO PRN (09:03)
== END 2020-11-30 10:50 | disposition home or self-care (01) | DRG 774 ==
LOC: ED 10:55 → BSU 15:06
PROVIDERS: ADMIT Psychiatry & Neurology Psychiatry; ATTEND Psychiatry & Neurology Psychiatry